=== PATIENT | female | born 1960 | race Caucasian/White ===

== ENCOUNTER → 2020-03-24 | Outpatient (CLI) | payer BC | LOC: CAT 09:59 | PROVIDERS: ATTEND Family Medicine | DX: K76.89 Other specified diseases of liver (principal); R19.5 Other fecal abnormalities ==

== ENCOUNTER → 2020-03-25 | Outpatient (CLI) | payer BC | LOC: CAT 10:08 | PROVIDERS: ATTEND Family Medicine | DX: R11.11 Vomiting without nausea (principal); R10.13 Epigastric pain ==